=== PATIENT | female | born 1960 | race Caucasian/White ===

== ENCOUNTER 2025-03-09 10:06 | Emergency (ER) | payer MEDICAID, OTHER ==
[~2025-03-09] VITALS: Ht 165.1 cm; Wt 72.6 kg
[2025-03-09] MEDS ORDERED: predniSONE 20 MG TABLET ONE (10:48)
[2025-03-09] MEDS: predniSONE 20 MG TABLET PO ONE (10:50)
[2025-03-09] MEDS ORDERED: ALBUTEROL FS 2.5 MG/3 ML VIAL.NEB ONE (10:54)
[2025-03-09] MEDS ORDERED: IPRATROPIUM NEB FS 0.5 MG/2.5 ML AMPUL.NEB ONE (10:55)
[2025-03-09] MEDS: IPRATROPIUM NEB FS 0.5 MG/2.5 ML AMPUL.NEB NEB ONE (11:05)
[2025-03-09] MEDS: ALBUTEROL FS 2.5 MG/3 ML VIAL.NEB NEB ONE (11:05)
[2025-03-09 11:06] VITALS: O2SAT 94
[2025-03-09 12:06] VITALS: O2SAT 100
[2025-03-09] MEDS ORDERED: PRED20TA PO (12:26)
[2025-03-09] MEDS ORDERED: ALBU18HF2 INH (12:26)
[2025-03-09 12:51] VITALS: BP 127/83; TEMP 98.3; O2SAT 100
== END 2025-03-09 12:52 | disposition home or self-care (01) ==
LOC: ER 10:13
DX: J45.901 Unspecified asthma with (acute) exacerbation (principal); Z79.52 Long term (current) use of systemic steroids; Z88.2 Allergy status to sulfonamides
CPT/HCPCS: 99285; 71045; 94644; J7512